=== PATIENT | male | born 1995 ===

== ENCOUNTER 2022-01-28 13:21 | Emergency (ER) | payer OTHER, SELFPAY ==
[2022-01-28 13:41] VITALS: BP 140/86; PULSE 94; RESP 18; TEMP 36.6; O2SAT 98; BMI 25.1
--- NOTE | 2022-01-28 14:43 | ED_ITS ---
HPI - General Adult General Date Seen: 01/28/22 Chief complaint: Back Injury/Pain Stated complaint: Back Pain Time Seen by Provider: 01/28/22 13:59 Source: patient History of Present Illness HPI narrative: Patient is a 26-year-old male who presents with pain in his right lower back which started earlier today. He has had pain like this before, but typically it starts when he does something to his back for example lifts something or inj uries that when he is riding his horse. Today he can not identify anything specific that seemed to set it off, and it is worse than what he has had in the past so he thought he would get it checked out. It is much worse when he moves or when he walks although it hurts when he is sitting still as well. It does not radiate into his leg very much but does kind of going to the hip. It is worst in the mid right back but also radiates some into the lower ribcage area as well as across into the left lower back. He does not have any weakness or numbness. No bowel or bladder changes. No recent fever chills. No pleuritic pain, no shortness of breath. No urinary symptoms. No abdominal pain, vomiting or diarrhea. At times he has felt a little bit nauseated due to the severity of the pain. He has not taken any medications. Has not tried ice or any other remedies. He denies any drug or alcohol use. Does not smoke. Denies other medical history. Related Data Home Medications Medication Instructions Recorded Confirmed testosterone cypionate 200 mg/mL mg 01/28/22 intramuscular oil Previous Rx's Medication Instructions Recorded cyclobenzaprine 10 mg tablet 10 mg PO TID PRN muscle spasm #14 01/28/22 tabs Allergies Allergy/AdvReac Type Severity Reaction Status Date / Time No Known Drug Allergies Allergy Verified 01/28/22 13:41 Review of Systems Status of ROS: Reports: 10 or more systems reviewed and unremarkable except as noted in History and below Exam Narrative: Exam Narrative: Vital signs as noted above. In general, an alert, well-appearing patient. Head: Normocephalic, atraumatic. Eyes: Pupils are equal reactive. Extraocular movements are full. Conjunctivae are normal. ENT: Mucous membranes are moist. Throat is normal. Neck: Supple without lymphadenopathy. Heart: Regular rate and rhythm. No murmur or rub. Lungs: Clear bilaterally. No increased work of breathing, crackles or wheezes. Back: Reproducible muscle tenderness in the right lumbar musculature. Straight leg raise is positive bilaterally. Abdomen: Soft and nontender. No organomegaly. Extremities: Well perfused. No edema. No calf tenderness. Pulses intact. Neurologic: Patient is alert and oriented to person and place. Speech is fluent. Face is symmetric. Moves all extremities equally. Strength is 5 5 in bilateral lower extremities. Sensation intact bilaterally. Affect: Normal. Skin: Warm and dry. Well perfused. Const: Vital Signs, click to edit/add: Vital Signs - 24 hr 01/28/22 13:41 Temperature 97.8 F Pulse Rate [Right Pulse Oximeter] 94 Respiratory Rate 18 Blood Pressure [Ri ght Upper Arm] 140/86 H Pulse Oximetry 98 Oxygen Delivery Me thod Room Air Documenting provider has reviewed patient's vital signs: yes Course Course Hospital Course: Overall, pain is most consistent with muscle spasm/lumbar strain. I do not see any red flags to indicate that he would need emergent imaging. Symptoms right now do not suggest radiculopathy. I would doubt intra-abdominal pathology such as kidney stone, pyelonephritis, hepatitis, cholecystitis etcetera given the absence of any abdominal pain or tenderness, reproducible nature of his symptoms with palpation of his back. Discussed that x-rays are not typically helpful. Recommended use of nonsteroidals and muscle relaxers, ice. If not improving over the next week or 2, primary care follow-up. Imaging can be considered if he is worsening or not improving in the expected time frame. Did discuss that if he has worsening symptoms, radicular symptoms, weakness numbness, bowel or bladder changes or new symptoms such as fever, that I would want him to return. He is comfortable with that plan. I did give him a work note for limited duty for the next week to limit lifting, twisting and bending etc.. Vital Signs Vital signs: Initial Vital Signs Temperature 97.8 F 01/28/22 13:41 Temperature Source Temporal Artery Scan 01/28/22 13:41 Pulse Rate 94 01/28/22 13:41 Respiratory Rate 18 01/28/22 13:41 Blood Pressure 140/86 H 01/28/22 13:41 Blood Pressure Mean 104 01/28/22 13:41 Blood Pressure Position Sitting 01/28/22 13:41 Pulse Oximetry 98 01/28/22 13:41 Oxygen Delivery Method 01/28/22 13:41 Vital Signs Temperature 97.8 F 01/28/22 13:41 Pulse Rate 94 01/28/22 13:41 Respiratory Rate 18 01/28/22 13:41 Blood Pressure 140/86 H 01/28/22 13:41 Pulse Oximetry 98 01/28/22 13:41 Oxygen Delivery Method 01/28/22 13:41 Temperature 97.8 F 01/28/22 13:41 Pulse Rate 94 01/28/22 13:41 Respiratory Rate 18 01/28/22 13:41 Blood Pressure 140/86 H 01/28/22 13:41 Pulse Oximetry 98 01/28/22 13:41 Oxygen Delivery Method 01/28/22 13:41 Discharge Plan Discharge Clinical Impression: Low back pain Patient Disposition: Home, Self-Care Condition: Stable Instructions: Acute Low Back Pain (ED) Additional Instructions: Ice several times a day over the next few days. Ibuprofen, 400 mg 3 times daily with food. Flexeril as needed. No heavy lifting, twisting, bending over the next few days to week. If you are not improving over the next week to 10 days, primary care follow-up, imaging can be discussed if symptoms are progressive or worsening, or not improving as expected. If you develop worsening symptoms, radiating pain, weakness, numbness, bowel or bladder changes, return to the emergency department at any time. Prescriptions: New cyclobenzaprine 10 mg tablet 10 mg PO TID PRN (Reason: muscle spasm) Qty: 14 0RF No Action testosterone cypionate 200 mg/mL oil Label Comments: INJECT 0.35 ML (70 MG) SUBCUTANEOUSLY ONCE EVERY WEEK Stand Alone Forms: MyHealth Info Instructions
== END 2022-01-28 15:10 | disposition home or self-care (01) ==
LOC: ED 14:57
PROVIDERS: Emergency Provider Emergency Medicine
DX: M54.50 Low back pain, unspecified (principal)
CPT/HCPCS: 99283; 99284

== ENCOUNTER 2023-11-25 08:25 | Outpatient (CLI) | payer BC, SELFPAY ==
[2023-11-25 12:23] LABS: Chlamydia DNA Amplified* NOT DETECTED (No Detected); GC DNA Amplified* NOT DETECTED (No Detected)
== END 2023-11-25 08:26 | disposition home or self-care (01) ==
LOC: NFLDREF 08:26
PROVIDERS: Visit Provider Family Medicine
DX: B37.9 Candidiasis, unspecified (principal); L29.3 Anogenital pruritus, unspecified
CPT/HCPCS: 87491; 87591

== ENCOUNTER 2024-08-10 08:00 | Outpatient (RCR) | payer BC, SELFPAY ==
--- NOTE | 2024-06-14 16:54 | OT.OPOE ---
OT Outpatient Ortho Eval OT Outpatient Ortho Eval* Start: 06/14/24 16:19 Freq: Status: Active Protocol: Document 06/14/24 16:20 LCN (Rec: 06/14/24 16:51 LCN [id number]) E-signed By Stephanie Oswald, OTR/L, CLT OT OP Ortho Eval Details Complexity Complexity Low Insurance Information Insurance Information Medicaid,Blue Cross/Blue Shield Outpatient History/Precautions Current Condition/Medical Diagnosis Referring Provider Geremias Natarajan Medical Diagnoses R wrist and thumb pain Treatment Diagnosis wrist stiffness, hand weakness Date of Onset 04/04/24 Other Conditions Healthy; has had good gender affirming response to B mastectomy and use of testosterone. Has had PT for R gluteal pain with Yina Sawyer at [facility] in [facility], good response to manual techqniues and stretching / yoga exercises ( new injury after return to biking/new to drop bars). 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 Social History Current Occupation Farm labor Critical Job Demands Pull,Lift,Overhead Reach, Prolonged Standing Other Critical Job Demands repetitive use of tools, shovels, pruners heavy equipment Fitness biking Oriented Mental Status No Concerns Ortho Subjective Subjective Subjective Juan Carlos is a 28 y/o male who is having R wrist to 1st dorsal compartment pain after pulling on a stubborn wet tree root with wet gloves in mid March . Had immediate shock of pain and since then has had poor endurance with repetitive gripping, pinching, knitting, deb on Switch. Dorsal wrist hurts with gripping full pasta pot with 2 hands/pouring and applying pressure while scrubbing inside of pots. Pain responds some to heat, icing ( occasional, does not last longer than 10-15 min after), kinesiotaping with WR EX and dorsal wrist crease, thumb spica splint (mildly helpful) wrist cock up/OTC velcro (wrist gets more stiff, too bulky). Has occasional palmar numbness after leaning on couch arm, knitting or sleeping. Pain Assessment Pain Pain Yes Pain Comments 6-7/10 during heavy work, 3-4/ 10 constant ache while at rest . Range of Motion and Strength Shoulder Range of Motion and Strength Shoulder Range of Motion and Strength Balanced 5/5 SH FL, ABD, ER, IR and low trap for R UE. ( L SH IR 4+/5 at ribside, no pain.) Wrist Range of Motion and Strength Wrist Range of Motion and Strength WR EX 65 of 70, WR FL 75 of 80 , RD 25 of 20, UD 35 of 45. Pn with overpressure at R dorsal wrist crease and 1st dorsal compartment. MMT 4+/5 WE with 3-4/10 dorsal wrist 4+/[address] 5/5 tender at 1st DC. 5/5 UD. Supination/ pronation 4+/5 no pain, just weak. Dynamic Nerve Tension-- in R UE ulnar nerve glide series has pulling/tension and thick, gritty tissue texture changes at R biceps, pec minor medial elbow to palm and base of thumb in positions 1/3/4/5/6/7 Hand/Finger/Thumb Range of Motion and Strength Hand/Finger/Thumb Range of Motion and SF digit EXT 4-/5, adduction 4 Strength +/5. IF DIG EX 5/5. Hand Pinch/Home Health Provider Strength Hand Pinch/Home Health Provider Strength Hand Pinch/Home Health Provider Strength Left Hand,Right Hand Left Hand Home Health Provider Strength Position 1 in Elbow 75 Flexion (lbs) Home Health Provider Strength Position 2 in Elbow 80 Extension (lbs) Lateral Pinch Strength (lbs) 20 Three Point Pinch (lbs) 15 Right Hand Home Health Provider Strength Position 1 in Elbow 55 Flexion (lbs) Home Health Provider Strength Position 2 in Elbow 50 Extension (lbs) Lateral Pinch Strength (lbs) 14 Three Point Pinch (lbs) 12 Comments Comments WNL age for age is 63-74#. Pinch is 16-17#. Upper Extremity Special Tests Tenosynovitis Wrist Finklestein Test Negative Left,Negative Right Median Nerve-Carpal Tunnel Wrist Tinel Test Negative Left,Negative Right Durkan's Test Negative Left,Negative Right OT Problems Problems Problems Decreased Strength,Decreased Range of Motion,Pain,Sensory Sensitivity,Lifting,Gripping, Pinching Other Problems Opening Containers,Computer, Fasteners Patient Potential Excellent Assessment Assessment Assessment Juan Carlos is having R wrist to dorsal 1st compartment pain after straining wrist while pulling out a long tap root/ glove slipped. Now has ongoing wrist stability, brass finisher weakness, hand fatigue, occasional numbness, pulling/ tension and thick, gritty tissue texture changes at R biceps, pec minor medial elbow to palm and base of thumb in positions that is affecting several ADL and home /work/ leisure tasks. They would benefit from skilled OT to address these areas. Occupational Therapy Treatment Plan - OP Potential Rehabilitation Potential Excellent Barriers Barriers to goal attainment very quick learner, good with HEP in the past. Set Goals Goals Set with Patient Yes Goals Goals In 8 weeks, pt will demonstrate:? 1) Decreased pn to <2/10 80% of the time with sustained gripping, carrying groceries, cooking tools, knitting and playing violin. 2) I HEP for stretching, gradual strengthening and self mgmt strategies. 3) improved L brass finisher strength to 60# and royal pinch to 15# with R thumb/wrist pain < 1/10. 4)??Pt to be fit with functional bracing (for R CMC, wrist) and use adaptive strategies to protect joint integrity to support less pain with ADL. Treatment Plan Treatment Plan Evaluation,Edema Control, Iontophoresis,Joint Mobilization,Manual Therapy, Splinting,Ultrasound, Therapeutic Exercise,Self Care /Home Management,Education Expected Frequency 1-2x Week Expected Duration 6-8 Weeks Home Program Home Program Home Program Initiated Home Program Specifics Edema mgmt with oice cup massage, ulnar nerve glides, self-kinesiotaping at 1st dorsal compartment, dynamic wrist flexor stretching. Timed knitting sets to 15-20 min intervals with ulnar nerve glides. Certification Certification Statement I Certify That: Therapy Services Provided, Therapy Plan Established, Therapy Plan Reviewed Certification Information Clinic ID # [id number] Initial Certification Date 06/14/24 Recertification Due Date 09/12/24 Provider Signature Required Yes Provider Signature Shows Agreement With POC & Medical Necessity Physician NPI Number Write NPI# Here Physician Comment/Change Comment or Changes Physician Signature & Date Requested Please Sign/Date Here
== END 2024-12-08 23:59 | disposition home or self-care (01) ==
PROVIDERS: PCP Registered Nurse; Visit Provider Family Medicine
DX: M25.531 Pain in right wrist (principal); M79.644 Pain in right finger(s); Z51.89 Encounter for other specified aftercare
CPT/HCPCS: 97033; 97110; 97140; 97165; 97530; 97535; L3808; X5282

== ENCOUNTER 2024-11-03 12:08 | Emergency (ER) | payer OTHER, SELFPAY ==
--- OUTSIDE RECORDS SUMMARY | 2024-11-03 12:11 | XMS_ITS | Clinical Summary ---
Author Organization [facility] Address [address], [place] [address] Care Team Providers Care Stop Attacher Name Role Phone Clinician, Not Found MD Primary Care Provider Un available Source Comments You are receiving this document as you are listed as the primary care provider,follow-up provider, or the patient has been referred to you for consultation.This is in compliance with the Medicare and[facility] EHR Incentive Program,which states Providers who transition their patient to another setting of careor provider of care or refers their patient to another provider of care shouldprovide summary care record for each transition of care or referral. [facility] Allergies No known active allergies Medications NEEDLE, DISP, 18 G 18G X 1-1/2 Use for weekly administration of medication 25 Each 2 Active sharps container For sharps 1 Each 2 Active TUBERCULIN SYR 1CC/25GX5/8 25G X 5/8 1 ML Use to inject testosterone weekly 25 Each 2 Active B-D INSULIN SYRINGE 1CC/25GX1 25G X 1 1 ML once every week. 2 Active testosterone cypionate (DEPO-TESTOSTE CLARITZA) 200 MG/ML injection INJECT 0.35 ML (70 MG) SUBCUTANEOUSLY ONCE EVERY WEEK 10 mL 2 Active Active Problems Problem Noted Date Diagnosed Date Gender dysphoria in adult 01/01/2022 Overview (01/01/2022): Added automatically from request for surgery [id number] Immunizations Immunization Administration Dates Next Due Influenza IIV4 (Quadrivalent) 0.5mL (39261) 02/15 Moderna Bivalent 12+ 03/14/2022 Moderna Monovalent 12+ 08/26/2021,06/03/2021 Pfizer Monovalent 12+ Purple Top 10/02/2020,08/15 Family History Medical History Relation Name Comments Dementia Maternal Grandfather Lives i n a facility Cancer Maternal Grandmother Non-Hod gkins Lymphoma Mental Disorder Maternal Grandmother Ana M clark, depression, ADHD Relation Name Status Comments Father Alive Mother Alive Brother Alive Maternal Grandfather Alive Maternal Grandmother Alive Paternal Grandfather Paternal Grandmother Alive Social History Tobacco Use Types Packs/Day Years Used Date Smoking Tobacco: Never Alcohol Use Standard Drinks/Week Comments Yes 0 (1 standard drink = 0.6 oz pur e alcohol) 1-2 per mo Comments Unknown Sex and Gender Information Value Date Recorded Sex Assigned at Female 05/13/2022 8:40 AM TECHNICAL TRAINING INSTRUCTOR Legal Sex Male 11:48 AM TECHNICAL TRAINING INSTRUCTOR Gender Identity Non-binary 05/13/2022 8:40 AM TECHNICAL TRAINING INSTRUCTOR Sexual Orientation Not on file 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 on file Not on file Not on file Last Filed Vital Signs Vital Sign Reading Time Taken Comments Blood Pressure 116/75 07/30/2022 3:20 PM TECHNICAL TRAINING INSTRUCTOR Pulse 87 07/30/2022 3:20 PM TECHNICAL TRAINING INSTRUCTOR Temperature 36.4 C (97.5 F) 05/20/2022 1:45 PM TECHNICAL TRAINING INSTRUCTOR Respiratory Rate 14 05/20/2022 3:16 PM TECHNICAL TRAINING INSTRUCTOR Oxygen Saturation 99% 05/20/2022 4:00 PM TECHNICAL TRAINING INSTRUCTOR Inhaled Oxygen Concentration - - Weight 77.1 kg (170 lb) 07/30/2022 3:20 PM TECHNICAL TRAINING INSTRUCTOR Height 172.7 cm (5' 8) 05/13/2022 8:38 AM TECHNICAL TRAINING INSTRUCTOR Body Mass Index 25.85 05/13/2022 8:38 AM TECHNICAL TRAINING INSTRUCTOR Plan of Treatment Health Maintenance Due Date Last Done Comments Adult Preventive Visit 09/24/2015 DTaP/Tdap/Td Vaccine (1 - Tdap) 2016 COVID-19 Vaccine ( season) 2024 03/14/2022, 08/26/2021, 06/03/2021, Additional history exists Cervical Cancer Screening 08/28/2024 08/28/2021 Influenza Vaccine (Season Ended) 2025 03/14/2022 Zoster/Shingles Vaccine (1 of 2) 09/24/2047 Chlamydia Discontinued 07/30/2022, 08/28/2021 HIV Screening (Preventive Services) Completed 07/30/2022 Hep C Screening (Preventive Services) Completed 07/30/2022 HPV Vaccine Aged Out No longer eligi ble based on patient's age to complete this topic HepA Vaccine Aged Out No longer eligi ble based on patient's age to complete this topic Hib Vaccine Aged Out No longer eligi ble based on patient's age to complete this topic IPV (Polio) Vaccine Aged Out No longe r eligible based on patient's age to complete this topic MCV4 Vaccine Aged Out No longer eligi ble based on patient's age to complete this topic Meningococcal B Vaccine Aged Out No l onger eligible based on patient's age to complete this topic Pneumococcal Vaccine Aged Out No long er eligible based on patient's age to complete this topic Procedures Procedure Name Priority Date/Time Associated Diagnosis Comments HIV 1/2 AG/AB 4TH GEN Routine 07/30/2022 3:44 PM TECHNICAL TRAINING INSTRUCTOR Routine screening for STI (sexually transmitted infection) HEPATITIS C ANTIBODY, WITH REFLEX Routine 07/30/2022 3:44 PM TECHNICAL TRAINING INSTRUCTOR Routine screening for STI (sexually transmitted infection) CHLAMYDIA & GC (14 YEARS & OLDER) Routine 07/30/2022 3:44 PM TECHNICAL TRAINING INSTRUCTOR Routine screening for STI (sexually transmitted infection) CYTOLOGY (PAP) Routine 08/28/2021 12:11 PM CDT Screening for malignant neoplasm of cervix from Last 3 Months or Most Recently Relevant to Health Maintenance Results * HIV 1/2 Ag/Ab 4th Generation (07/30/2022 3:44 PM TECHNICAL TRAINING INSTRUCTOR) HIV 1/2 Antigen/Antib eusebio (4th generation) Negative (Non Reactive) Negative (Non Reactive) 07/30/2022 11:16 PM TECHNICAL TRAINING INSTRUCTOR [facility] Comment:HIV-1 p24 Antigen an d HIV-1/HIV-2 Antibody not detected Blood Venipuncture / Unknown 07/30/2022 3:44 PM TECHNICAL TRAINING INSTRUCTOR 07/30/2022 3:44 PM TECHNICAL TRAINING INSTRUCTOR Chelle Barajas MD LAB_1 Final Result Performing Organization Address City/[facility]/ZIP Co de Phone Number [facility] [address] * Chlamydia & GC (14 Years and Older): Vagina (07/30/2022 3:44 PM TECHNICAL TRAINING INSTRUCTOR) Pathologist [facility] Chlamydia Trachomatis STD Not Detected Not Detected 07/31/2022 12:43 PM TECHNICAL TRAINING INSTRUCTOR [facility] N. gonorrhoeae STD Not Detected Not Detected 07/31/2022 12:43 PM TECHNICAL TRAINING INSTRUCTOR [facility] Swab STD SPECIMEN FROM VAGINA / Unknown Non-blood Collection / Unknown 07/30/2022 3:44 PM TECHNICAL TRAINING INSTRUCTOR 07/30/2022 5:02 PM TECHNICAL TRAINING INSTRUCTOR Narrative [facility] - 07/31/2022 12:43 PM TECHNICAL TRAINING INSTRUCTOR Test performed by Welder 2Nd Shift Mediated Amplification (TMA). Chelle Barajas MD LAB_1 Final Result Performing Organization Address [facility] de Phone Number [facility] [address] [phone] * Hepatitis C Antibody, with Reflex (07/30/2022 3:44 PM TECHNICAL TRAINING INSTRUCTOR) Pathologist [facility] Hepatitis C Antibody Negative (Non Reactive) Negative (Non Reactive) 07/30/2022 11:16 PM TECHNICAL TRAINING INSTRUCTOR [facility] Comment:Antibodies to HCV no t detected. Does not exclude the possiblity of exposure to HCV. Blood Venipuncture / Unknown 07/30/2022 3:44 PM TECHNICAL TRAINING INSTRUCTOR 07/30/2022 3:44 PM TECHNICAL TRAINING INSTRUCTOR Chelle Barajas MD LAB_1 Final Result Performing Organization Address City/[facility]/ZIP Co de Phone Number [facility] [address] * PAP Test (08/28/2021 12:11 PM CDT) Case Report Pap Case: [id number] Authorizing Provider: Chelle Barajas MD Collected: 08/28/2021 1211 Ordering Location: [place] Gender Received: 08/28/2021 1237 Services First Screen: Nault, Paula E, CT (ASCP) Specimen: Pap Test, Routine, Cervix/Endocervix 09/09/2021 3:46 PM CDT [facility] Pap Specimen Adequacy Satisfactory for evaluation, endocervical/sage sformation zone component present. 09/09/2021 3:46 PM CDT [facility] Pap Interpretation (NILM) Negative for intraepithelial lesion or malignancy. 09/09/2021 3:46 PM CDT [facility] at 1546 CDT Pap Disclaimer The Pap test is a screening test designed to aid in the detection of cervical cancer and its precursor lesions. It is not a diagnostic procedure and should not be used as the sole means of detecting cervical cancer. Both false-positive and false-negative results may occur. 09/09/2021 3:46 PM CDT [facility] Gross Description The specimen is received in SurePath fixative and properly labeled. 1 Pap-stained SurePath slide is prepared. 09/09/2021 3:46 PM CDT [facility] Embedded Images 3:46 PM CDT [facility] Other Specimen Type ENTIRE ENDOCERVIX / Unknown 08/28/2021 12:11 PM CDT 08/28/2021 12:37 PM CDT Comment:LMP: No LMP for male patient. us Chelle Barajas MD LAB PATHOLOGY Final Result [facility] [address] [address] from Last 3 Months or Most Recently Relevant to Health Maintenance Insurance [facility] Advance Directives * Full Code (Latest Code Status on File) Date Activated Date Inactivated Comments 05/20/2022 1:04 PM 05/20/2022 6:43 PM Care Teams Stop Attacher Relationship Specialty Start Date End Date Clinician, Not Found, [place] [address] PCP - General 05/20/22
[2024-11-03 12:29] VITALS: BP 136/78; PULSE 92; RESP 16; TEMP 36.8; O2SAT 96; BMI 29.0
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
[2024-11-03] MEDS: KETOROLAC 60 MG/2 ML inj IM (15:23)
== END 2024-11-03 15:37 | disposition home or self-care (01) ==
LOC: ED 15:35
PROVIDERS: Emergency Provider Family Medicine; PCP Registered Nurse
DX: M54.50 Low back pain, unspecified (principal)
CPT/HCPCS: 96372; 99284; J1885

== ENCOUNTER 2025-01-18 09:04 | Outpatient (CLI) | payer BC, SELFPAY ==
--- NOTE | 2025-01-18 09:15 | CRLHL7_ITS ---
For Patients: As a result of the Century Cures Act, medical imaging exams and procedure reports are released immediately into your electronic medical record. You may view this report before your referring provider. If you have questions, please contact your health care provider. INDICATION: Right L4/L5 radiculopathy. TECHNIQUE : Lumbar spine MRI without contrast. COMPARISON: Lumbar spine radiographs from 01/05/2025. FINDINGS : Five lumbar type vertebral bodies, with the last fully formed disc space designated as L5-S1. Normal lumbar lordotic curve. No recent compression fracture or marrow replacing process. Lower cord/conus signal is normal. The conus terminates at a normal location. No intradural lesion. No extraspinal soft tissue abnormalities. Discs/Endplates: L5-S1 mild disc height loss disc desiccation and small Schmorl`s nodes. L3-4 and L4-5 disc dehydration. L4-5 right-sided Schmorl`s node deformities with trace type 1 Modic changes. The remaining discs demonstrate normal height and signal. Findings at individual levels as follows: T11-12 through L2-3: No spinal canal or neural foraminal stenosis. L3-4: Mild disc bulge with shallow central protrusion containing an annular fissure. No spinal canal or neural foraminal stenosis. L4-5: Mild disc bulge. Superimposed 7 millimeter right central/subarticular disc protrusion which compresses the traversing L5 nerve root. Bilateral facet arthrosis. Mild spinal canal stenosis and mild bilateral neural foraminal stenosis. L5-S1: 8 millimeter right central/subarticular disc protrusion which mildly compresses the traversing S1 nerve root. Bilateral facet arthrosis. Mild bilateral foraminal stenosis. No spinal canal stenosis. Imaged SI joints: Minimal arthrosis. Imaged sacrum: Within normal limits. IMPRESSION: 1. No acute fracture or marrow replacing process. 2. At L4-5, a right central/subarticular disc protrusion compresses the traversing L5 nerve root. Overall mild spinal canal stenosis. 3. At L5-S1, a right central/subarticular protrusion mildly compresses the traversing S1 nerve root. 4. No significant spinal canal/neural foraminal stenosis or compression of neural structures elsewhere. 5. Mid to lower lumbar disc degeneration. L4-5 right-sided Schmorl`s node deformities with trace type 1 Modic changes. Dictated by Frederic Merrill MD @ 01/19/2025 11:28:12 AM (Electronically Signed)
== END 2025-01-18 09:05 | disposition home or self-care (01) ==
LOC: MRI 09:04
PROVIDERS: PCP Family Medicine; Visit Provider Family Medicine
DX: M54.16 Radiculopathy, lumbar region (principal); M51.26 Other intervertebral disc displacement, lumbar region; M51.27 Other intervertebral disc displacement, lumbosacral region; M51.369 Other intervertebral disc degeneration, lumbar region without mention of lumbar back pain or lower extremity pain; M51.46 Schmorl's nodes, lumbar region; M79.604 Pain in right leg
CPT/HCPCS: 72148

== ENCOUNTER 2025-04-04 07:54 | Outpatient (CLI) | payer BC, SELFPAY | END 2025-04-04 07:55 | disposition home or self-care (01) | LOC: INJ CL 07:54 | PROVIDERS: PCP Family Medicine; Visit Provider Family Medicine | DX: M54.16 Radiculopathy, lumbar region (principal); M51.369 Other intervertebral disc degeneration, lumbar region without mention of lumbar back pain or lower extremity pain | CPT/HCPCS: 64483; 64484; J1100; Q9966 ==

== ENCOUNTER 2025-05-24 07:04 | Outpatient (CLI) | payer BC, SELFPAY ==
--- NOTE | 2025-05-24 07:15 | CRLHL7_ITS ---
For Patients: As a result of the Century Cures Act, medical imaging exams and procedure reports are released immediately into your electronic medical record. You may view this report before your referring provider. If you have questions, please contact your health care provider. INDICATION: Low back pain and leg pain. TECHNIQUE: Lumbar spine MRI was performed without the administration of intravenous contrast. COMPARISON: : Lumbar spine MRI 01/18/2025. FINDINGS: There is normal lumbar alignment. No STIR hyperintensity to suggest an acute fracture or ligamentous injury. No suspicious marrow replacement. The vertebral body heights are maintained. Degenerative disc changes including disc space height loss with endplate and bone marrow changes predominantly at L4-L5 and to a lesser extent at L5-S1. Modic type 1 degenerative endplate changes at L4-L5. The visualized spinal cord and cauda equina nerve roots are within normal limits. Significant findings by level: T12-L1: No significant spinal canal or neural foraminal narrowing. L1-L2: No significant spinal canal or neural foraminal narrowing. L2-L3: No significant spinal canal or neural foraminal narrowing. L3-L4: Mild disc bulge with annular fissure without significant spinal canal or neural foraminal narrowing. L4-L5: Mild spinal canal stenosis, effacement of the right lateral recess with impingement on the descending right L5 nerve root, and mild neural foraminal stenosis bilaterally due to disc space height loss, disc bulge with superimposed central/right subarticular disc protrusion, and facet joint hypertrophy. L5-S1: Partial effacement of the right lateral recess with impingement on the descending right S1 nerve root and mild neural foraminal stenosis bilaterally due to disc space height loss, disc bulge with superimposed central/right subarticular disc protrusion, and facet joint hypertrophy. No significant spinal canal narrowing. The visualized soft tissues are within normal limits. IMPRESSION: 1. No evidence of fracture or malalignment. 2. Degenerative disc changes at L4-L5 and L5-S1 have not significantly changed from prior study on 01/18/2025. 3. At L4-L5, a central/right subarticular disc protrusion results in mild spinal canal stenosis and impingement of the descending right L5 nerve root. 4. At L5-S1, a central/right subarticular disc protrusion results in impingement on the descending right S1 nerve root. Dictated by Hugo Kang MD @ 05/24/2025 2:53:03 PM (Electronically Signed)
--- NOTE | 2025-05-24 08:00 | CRLHL7_ITS ---
For Patients: As a result of the Century Cures Act, medical imaging exams and procedure reports are released immediately into your electronic medical record. You may view this report before your referring provider. If you have questions, please contact your health care provider. Indication: Pain Technique: Plain film examination of the lumbar spine was performed. An AP view was obtained as well as lateral views in neutral, flexion and extension. Comparison: January 05, 2025 Findings: Alignment is normal. No fracture, dislocation or destructive process. No significant arthritic changes identified involving the facet joints or disc spaces. Mild limitation of range of motion between flexion and extension but no evidence of instability. Impression: 1. Mild limitation in range of motion between flexion and extension. No visible instability. 2. No acute fracture, dislocation or destructive process. 3. No significant visible disc disease or facet osteoarthritis Dictated by Nehemias Negron MD @ 05/24/2025 7:46:06 AM (Electronically Signed)
== END 2025-05-24 07:05 | disposition home or self-care (01) ==
LOC: MRI 07:05
PROVIDERS: PCP Family Medicine; Visit Provider Physician Assistant
DX: M51.16 Intervertebral disc disorders with radiculopathy, lumbar region (principal); M51.26 Other intervertebral disc displacement, lumbar region; M51.362 Other intervertebral disc degeneration, lumbar region with discogenic back pain and lower extremity pain; M48.061 Spinal stenosis, lumbar region without neurogenic claudication
CPT/HCPCS: 72110; 72148